=== PATIENT | female | born 1990 | race African-American/Black ===

== ENCOUNTER 2025-08-15 03:04 | Emergency (ER) | payer MEDICAID ==
[~2025-08-15] VITALS: Ht 167.6 cm; Wt 73.0 kg
[2025-08-15 03:12] VITALS: TEMP 37; O2SAT 100; O2SAT 99
[2025-08-15 03:37] VITALS: BP 109/75; PULSE 110; RESP 18
[2025-08-15] MEDS: IBUPROFEN 600MG TABLET PO ONE (03:37)
[2025-08-15] MEDS ORDERED: IBUP-1455 MT (04:31)
== END 2025-08-15 05:22 | disposition home or self-care (01) ==
LOC: ER 03:34
DX: S62.305A Unspecified fracture of fourth metacarpal bone, left hand, initial encounter for closed fracture (principal); S80.02XA Contusion of left knee, initial encounter; Y08.89XA Assault by other specified means, initial encounter; Y93.89 Activity, other specified; Y92.89 Other specified places as the place of occurrence of the external cause; Y99.8 Other external cause status
CPT/HCPCS: 29125; 73130; 73562; 99284